=== PATIENT | male | born 1975 ===

== ENCOUNTER 2017-07-22 10:34 | Emergency (ER) | payer OTHER ==
[2017-07-22 10:40] VITALS: BMI 30.4
[2017-07-22 10:44] VITALS: O2SAT 98
--- NOTE | 2017-07-22 11:05 | ED PDOC ---
Lower Extremity Pain/Injury Time Seen by Provider: 07/22/17 10:48 Chief Complaint (Nursing): Lower Extremity Problem/Injury Additional Complaint(s): Patient cut R knee yesterday (>16 hours ago) on knife. 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 Last tetanus unknown. Denies other trauma. Past Medical History Vital Signs: Last Vital Signs Temp 97.8 F 07/22/17 10:39 Pulse 63 07/22/17 10:39 Resp 16 07/22/17 10:39 BP 120/66 07/22/17 10:39 Pulse Ox 98 07/22/17 10:42 - Surgical History Surgical History: Appendectomy - Family History Family History: States: Unknown Family Hx - Immunization History Hx Tetanus Toxoid Vaccination: No Hx Influenza Vaccination: No Hx Pneumococcal Vaccination: No - Home Medications Home Medications: Ambulatory Orders Medication Instructions Recorded traMADol [Ultram] 50 - 100 mg PO Q6H #20 tab 10/21/14 - Allergies Allergies/Adverse Reactions: Allergies Allergy/AdvReac Type Severity Reaction Status Date / Time potassium Allergy Mild RASH Verified 07/22/17 10:42 Review of Systems Constitutional: Negative for: Fever, Chills Cardiovascular: Negative for: Chest Pain Respiratory: Negative for: Cough Gastrointestinal: Negative for: Nausea, Vomiting, Diarrhea, Constipation Musculoskeletal: Positive for: Other (knee pain at laceration) Neurological: Negative for: Weakness, Numbness, Incoordination Physical Exam - Reviewed Nursing Documentation Reviewed: Yes Vital Signs Reviewed: Yes - Physical Exam Appears: Positive for: Well, Non-toxic Head Exam: Positive for: ATRAUMATIC, NORMAL INSPECTION, NORMOCEPHALIC Eye Exam: Positive for: EOMI, Normal appearance, PERRL Neck: Positive for: Supple Extremity: Positive for: Other (R knee: 2cm laceration to anterior surface. No active bleeding. Normal strength. Normal ROM. No joint laxity. Distal pulses intact.) - ECG O2 Sat by Pulse Oximetry: 98 Medical Decision Making Medical Decision Making: R knee xray negative for fracture or foreign body. Due to laceration being opened for >16 hours and small size, laceration was copiously irrigated and then steristrips and dressing applied. Tetanus updated. Disposition - Clinical Impression Clinical Impression: Knee laceration - Disposition Disposition: Routine/Home Disposition Time: 11:28 Condition: GOOD Additional Instructions: Follow up with PMD within 2 days. Return to ED if condition worsens. Forms: [employer] ([place])
[2017-07-22 12:14] VITALS: BP 120/78; PULSE 78; RESP 19; TEMP 97.6
--- NOTE | 2017-07-22 13:20 | RAD ---
PROCEDURE: Right Knee Radiographs. HISTORY: laceration to R knee COMPARISON: None. FINDINGS: BONES: Normal. No fracture. JOINTS: Normal. No osteoarthritis. JOINT EFFUSION: None. OTHER FINDINGS: None. IMPRESSION: Normal radiographs of the right knee.
== END 2017-07-22 11:39 | disposition home or self-care (01) ==
LOC: H.ER 10:34
DX: S81.011A Laceration without foreign body, right knee, initial encounter (principal); W26.0XXA Contact with knife, initial encounter; Y92.89 Other specified places as the place of occurrence of the external cause